=== PATIENT | male | born 1980 | race Caucasian/White ===

== ENCOUNTER 2016-10-19 10:56 | Emergency (ER) | payer SELFPAY ==
[~2016-10-19] VITALS: Ht 172.7 cm; Wt 71.5 kg
[~2016-10-19 10:56] MED LIST: CORTIS10A RIGHT EAR
[2016-10-19 11:09] VITALS: BP 151/92; PULSE 78; RESP 16; TEMP 98.4; O2SAT 99
[2016-10-19] MEDS ORDERED: TETANUS/DIPHTHERIA TOXOID ADULT 0.5 ML VIAL IM ONE (12:00)
--- NOTE | 2016-10-19 12:05 | PD ---
HPI Chief Complaint: Foreign Body Time Seen by Provider: 11:51 Travel History International Travel<30 days: No Contact w/Intl Traveler<30days: No Traveled to known affect area: No History of Present Illness HPI 36-year-old male presents to the emergency room for evaluation of possible metallic foreign body to his tongue for the past 2 days. 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 While eating chips, he felt a sharp stabbing pain to his tongue and spit out a lot of blood. He is unsure if he was cut by metal or a chip. He did not see a of metal in his spit. He states since then with certain movements of his tongue, he has sharp pain. Patient is fearful that there is a metallic foreign body inside his tongue. Unknown last tetanus. PFSH Past Medical History Medical History: Denies Significant Hx Diminished Hearing: No Immunizations Current: No Tetanus Vaccination: > 5 Years Influenza Vaccination: No Past Surgical History Surgical History: No Previous Surgery Social History Alcohol Use: Yes (SOCIALLY) Tobacco Use: No Substance Use: No Allergies-Medications (Allergen,Severity, Reaction): Coded Allergies: No Known Allergies (Verified , 10/19/16) Reported Meds & Prescriptions Reported Meds & Active Scripts Active No Active Prescriptions or Reported Medications Review of Systems Except as stated in HPI: all other systems reviewed are Neg Physical Exam Narrative GENERAL: Well-nourished, well-developed male in no acute distress. Afebrile. Ambulatory. SKIN: Focused skin assessment warm/dry. HEAD: Normocephalic. EYES: No scleral icterus. No injection or drainage. TONGUE: No obvious foreign body. No sharp feeling to palpation. No obvious laceration. No bleeding. NECK: Supple, trachea midline. No JVD or lymphadenopathy. CARDIOVASCULAR: Regular rate and rhythm without murmurs, gallops, or rubs. RESPIRATORY: Breath sounds equal bilaterally. No accessory muscle use. Data Data Last Documented VS Vital Signs Date Time Temp Pulse Resp B/P (MAP) Pulse Ox O2 Delivery O2 Flow Rate FiO2 10/19/16 11:09 98.4 78 16 151/92 (111) 99 Orders Orders Facial Bones - Ltd (<3vws) (10/19/16 ) Tetanus/Diphtheria Tox Adult (Tetanus/Di (10/19/16 12:00) MDM Medical Decision Making Medical Screen Exam Complete: Yes Emergency Medical Condition: Yes Medical Record Reviewed: Yes Differential Diagnosis Foreign body, laceration, abrasion, contusion Narrative Course 36-year-old male presents to the emergency room for evaluation of possible metallic foreign body to his tongue for the past 2 days. Patient was eating chips while grinding metal and felt a sharp stabbing pain to his tongue. He spit out blood. Patient has had continued sharp, stabbing feeling to his tongue since then and is fearful that a metallic body is still in his tongue. Physical exam is unremarkable. There is no obvious foreign body, laceration, abrasion, or edema of the tongue. Nontender to palpation. Patient was updated on tetanus. X-ray shows no obvious foreign body. Patient was reassured and discharged with instructions to follow up with her primary care physician or return for worsening symptoms. He understands and agrees to plan. Diagnosis Primary Impression: Puncture wound of tongue Qualified Codes: S01.512A - Laceration without foreign body of oral cavity, initial encounter Referrals: Primary Care Physician Additional Instructions: Follow-up with a primary care physician. Return to the emergency room for worsening symptoms. Med/Other Pt SpecificInfo: Prescription(s) given Scripts No Active Prescriptions or Reported Meds Disposition: 01 DISCHARGE HOME Condition: Stable Lucrecia Batista Oct 19, 2016 12:05
--- NOTE | 2016-10-19 12:39 | RADRPT ---
EXAM DATE/TIME: 10/19/2016 12:12 [facility] COMPARISON: No previous studies available for comparison. INDICATIONS : States possible metal splinter in his tongue MEDICAL HISTORY : None. SURGICAL HISTORY : None. ENCOUNTER: Initial ACUITY: 1 day PAIN SCORE: 2/10 LOCATION: Bilateral tongue FINDINGS: Two view examination of the facial bones demonstrates no gross evidence of fracture. No radiopaque f oreign bodies are seen. CONCLUSION: Unremarkable limited examination of the facial bones. Po Smiley MD on October 19, 2016 at 12:37 Board Certified Radiologist. This report was verified electronically.
== END 2016-10-19 13:15 | disposition home or self-care (01) ==
LOC: PHEFT 10:56
DX: S01.532A Puncture wound without foreign body of oral cavity, initial encounter (principal); W45.8XXA Other foreign body or object entering through skin, initial encounter; Z23 Encounter for immunization
CPT/HCPCS: 70140; 90471; 90714